=== PATIENT | male | born 1965 | race Caucasian/White ===

== ENCOUNTER → 2021-05-05 | Day surgery (SDC) | payer OTHER ==
[~2021-05-05] VITALS: Ht 185.4 cm; Wt 111.3 kg
[~2021-05-05] MED LIST: CITA20TA6 PO; LIDOCAINE 2% PF 5 ML VIAL. ONE; PROPOFOL 10 MG/ML (20ML) VIAL. IV ONE
[2021-05-05 07:54] VITALS: BP 142/70
--- NOTE | 2021-05-05 09:36 | HP ---
DATE OF SERVICE: 05/05/2021 ADMIT DATE: 05/05/2021 UPDATED HISTORY AND PHYSICAL REASON: Colorectal screening, family history of colon cancer. HISTORY: A 55-year-old male with past medical history significant for osteoarthrosis, seen for screening colon exam. Bowel habits are regular without diarrhea or constipation. Family history is positive for colon cancer with an uncle. There has been no melena and/or hematochezia. Weight and appetite are stable. He is otherwise without additional complaints. PAST MEDICAL HISTORY: Osteoarthrosis. ALLERGIES: None. MEDICATIONS: Include citalopram. FAMILY HISTORY: Significant for colon polyps in multiple family members, hypertension in multiple family members and colon cancer in the uncle. SOCIAL HISTORY: He is a current daily smoker and social drinker. PAST SURGICAL HISTORY: Noncontributory. REVIEW OF SYSTEMS: Per records. PHYSICAL EXAMINATION: GENERAL: Reveals a well-nourished, well-developed male who is alert, cooperative, in no acute distress. VITAL SIGNS: Temperature 98.1, pulse 68, respiratory rate 14. LUNGS: Clear. CARDIOVASCULAR: Reveals an S1, S2, without S3, S4 or appreciable murmur. ABDOMEN: Reveals a soft abdomen, normal bowel sounds, without appreciable hepatosplenomegaly. EXTREMITIES: Reveals no cyanosis, clubbing or edema. IMPRESSION: Family history of colon cancer. Surveillance exam is recommended at this time. Risks and benefits of procedure including risk of hemorrhage and perforation with operation have been discussed. The patient is willing to proceed. IVANIA IBARRA: Deanna TID: [id number]
[2021-05-05 10:04] VITALS: BP 137/73
--- NOTE | 2021-05-07 15:11 | PATHOLOGY ---
[facility] Accession Number: [id number] . 01 Material submitted: . PART A: rectum - RECTAL POLYP BIOPSY PART B: hepatic flexure - HEPATIC FLEXURE POLYP BIOPSY . 02 Diagnosis: A. Colorectal biopsies, rectal polyps: - Tubular adenoma (1). - Hyperplastic polyp (1). . B. Colon biopsies, hepatic flexure polyp: - Tubular adenoma. (JPM:cely; 05/07/2021) S 05/07/2021 0844 Local . 02 Comment: There is no high grade dysplasia or evidence of malignancy. (JPM:cely; 05/07/2021) . 02 Electronically signed: . Sushil Farias MD, Pathologist NPI- [id number] . 01 Gross description: . A. The specimen is received in formalin, labeled "Jaquez, Wojciech, rectal polyp BX". Received are 2 segments of pale lyons tissue ranging in size from 0.3 to 0.4 cm in maximum dimensions. The specimen is submitted entirely in cassette A1. . B. The specimen is received in formalin, labeled "Jaquez, Wojciech, hepatic flexure polyp BX". Received are multiple segments of pale lyons tissue ranging in size from 0.2 cm to 0.9 cm in maximum dimensions. The specimen is submitted entirely in cassette B1.([facility]; 05/06/2021) [facility] 05/06/2021 1234 Local . 02 Pathologist provided ICD-10: K62.1, D12.8, D12.3 . 02 CPT . 773157, [id number] Specimen Comment: A courtesy copy of this report has been sent to [phone] Specimen Comment: [id number] Specimen Comment: Report sent to / DR HERNÁNDEZ Specimen Comment: A duplicate report has been generated due to demographic updates. Performed at: 01 [facility] [id number] [facility] [address], [place] [id number] MD Abelardo Kim MD Phone: [phone] Performed at: [facility] [address], [place] [id number] MD Sushil Farias MD Phone: [phone]
== END | disposition home or self-care (01) ==
LOC: ENDOS 07:34
PROVIDERS: ATTEND Internal Medicine Gastroenterology
DX: Z12.11 Encounter for screening for malignant neoplasm of colon (principal); D12.3 Benign neoplasm of transverse colon; D12.8 Benign neoplasm of rectum; K63.89 Other specified diseases of intestine; K64.0 First degree hemorrhoids; M19.90 Unspecified osteoarthritis, unspecified site; K21.9 Gastro-esophageal reflux disease without esophagitis; F32.9 Major depressive disorder, single episode, unspecified; Z80.0 Family history of malignant neoplasm of digestive organs; Z82.49 Family history of ischemic heart disease and other diseases of the circulatory system; Z79.899 Other long term (current) drug therapy; Z98.890 Other specified postprocedural states
CPT/HCPCS: 45380; 45385; 88305; J2704